=== PATIENT | male | born 1970 | race Caucasian/White ===

== ENCOUNTER 2021-05-03 11:03 | Emergency (ER) | payer MEDICAID ==
[~2021-05-03] VITALS: Ht 182.9 cm; Wt 84.0 kg
[2021-05-03] MEDS ORDERED: LORAZEPAM 2MG/ML CPJ IM STA (14:26)
[2021-05-03] MEDS ORDERED: HALOPERIDOL LACTATE 5MG/ML VIAL IM STA (14:26)
[2021-05-03] MEDS ORDERED: DIPHENHYDRAMINE 50MG/ML VIAL IM STA (14:26)
[2021-05-03 15:58] LABS: BASOPHILS % 0.6 % (0.0-2.0); EOSINOPHILS % 0.2 % (0.0-5.0); HEMATOCRIT. 42.6 % (42.0-52.0); HEMOGLOBIN. 14.6 g/dL (14.0-18.0); LYMPHOCYTES % 24.2 % (20.0-50.0); MEAN CORPUSCULAR HEMOGLOBIN 31.3 pg (28.0-32.0); MEAN CORPUSCULAR VOLUME 91.2 fL (80.0-94.0); MEAN PLATELET VOLUME 7.7 fl (7.4-10.4); MONOCYTES % 12.9 % (2.0-8.0); NEUTROPHILS % 62.1 % (40.0-76.0); PLATELET 234 x1000/uL (130-400); RED BLOOD CELL COUNT 4.67 mill/uL (4.7-6.1); RED CELL DISTRIBUTION WIDTH 13.5 % (11.6-14.6)
[2021-05-03 16:02] LABS: CHLORIDE 104 mEq/L (98-107)
[2021-05-03 16:10] LABS: ETHANOL BLOOD < 10 mg/dL
[2021-05-03 20:10] VITALS: BP 123/89
== END 2021-05-03 20:12 | disposition home or self-care (01) ==
LOC: ER 11:51
DX: F23 Brief psychotic disorder (principal); F15.10 Other stimulant abuse, uncomplicated
CPT/HCPCS: 36415; 80053; 80320; 85025; 96372; 99284; J1200; J1630; J2060; G0480

== ENCOUNTER 2023-04-18 01:29 | Emergency (ER) | payer MEDICAID, OTHER ==
[~2023-04-18] VITALS: Ht 190.5 cm; Wt 105.0 kg
[2023-04-18 01:42] VITALS: O2SAT 100
[2023-04-18] MEDS ORDERED: IBUP-2029 MT (03:06)
[2023-04-18] MEDS ORDERED: BENZ1LOZ73 MT (03:06)
[2023-04-18 03:31] VITALS: BP 120/80; PULSE 92; RESP 18; TEMP 97.9
== END 2023-04-18 03:36 | disposition home or self-care (01) ==
LOC: ER 01:29
DX: J02.9 Acute pharyngitis, unspecified (principal); Z00.00 Encounter for general adult medical examination without abnormal findings; F32.9 Major depressive disorder, single episode, unspecified; F15.10 Other stimulant abuse, uncomplicated
CPT/HCPCS: 99283

== ENCOUNTER 2023-04-20 09:52 | Emergency (ER) | payer MEDICAID ==
[~2023-04-20] VITALS: Ht 182.9 cm; Wt 98.0 kg
[~2023-04-20 09:52] MED LIST: BENZ1LOZ73 MT; IBUP-2029 MT
[2023-04-20 10:16] VITALS: BP 119/78; RESP 18; O2SAT 98
[2023-04-20 10:17] VITALS: PULSE 89
[2023-04-20] MEDS ORDERED: MAG355OR21 PO (11:12)
== END 2023-04-20 11:35 | disposition home or self-care (01) ==
LOC: ER 10:18
DX: K12.1 Other forms of stomatitis (principal)
CPT/HCPCS: 99282

== ENCOUNTER 2023-06-10 16:22 | Emergency (ER) | payer MEDICAID, OTHER ==
[~2023-06-10] VITALS: Ht 182.9 cm; Wt 93.0 kg
[~2023-06-10 16:22] MED LIST changes: +MAG355OR21 PO
[2023-06-10 16:29] VITALS: O2SAT 98
[2023-06-10 17:06] LABS: CLARITY URINE CLEAR (CLEAR); COLOR URINE DARK YELLOW (YELLOW); GLUCOSE URINE NEGATIVE (NEGATIVE); KETONES URINE 1+ (NEGATIVE); LEUKOCYTE ESTERASE URINE TRACE (NEGATIVE); NITRITE URINE NEGATIVE (NEGATIVE); OCCULT BLOOD URINE NEGATIVE (NEGATIVE); PH URINE 5.5 (4.5-8.0); PROTEIN URINE 1+ (NEGATIVE); SPECIFIC GRAVITY URINE 1.027 (1.005-1.030)
[2023-06-10 17:06] LABS: BASOPHILS % 0.7 % (0.0-2.0); EOSINOPHILS % 1.5 % (0.0-5.0); HEMATOCRIT. 37.3 % (42.0-52.0); HEMOGLOBIN. 12.8 g/dL (14.0-18.0); LYMPHOCYTES % 23.3 % (20.0-50.0); MEAN CORPUSCULAR HEMOGLOBIN 31.8 pg (28.0-32.0); MEAN CORPUSCULAR HGB CONC 34.2 g/dL (31.0-37.0); MEAN CORPUSCULAR VOLUME 93.1 fL (80.0-94.0); MONOCYTES % 11.5 % (2.0-8.0); PLATELET 211 x1000/uL (130-400); RED BLOOD CELL COUNT 4.01 mill/uL (4.7-6.1); RED CELL DISTRIBUTION WIDTH 13.8 % (11.6-14.6)
[2023-06-10 17:09] LABS: RBC URINE 0-2 /hpf (0-2); WBC URINE 0-2 /hpf (0-2); YEAST URINE NONE SEEN
[2023-06-10 17:18] LABS: CHLORIDE 105 mEq/L (98-107); INDEX HEMOLYSI 1 (1-3); INDEX ICTERIC 1 (1-4); INDEX LIPEMIC 1 (1-3); POTASSIUM 3.5 mEq/L (3.5-5.1); SODIUM 136 mEq/L (136-145)
[2023-06-10 17:19] LABS: BACTERIA URINE 1+; MUCUS URINE 1+ /lpf (NONE/TRACE); SQUAMOUS EPITHELIAL CELL URINE FEW /lpf (RARE/1+)
[2023-06-10 17:30] LABS: *AMPHETAMINES SCREEN URINE PRESUMTIVE POSITIVE (NEGATIVE); *BARBITURATES SCREEN URINE NEGATIVE (NEGATIVE); *BENZODIAZEPINES SCREEN URINE NEGATIVE (NEGATIVE); *COCAINE SCREEN URINE NEGATIVE (NEGATIVE); CANNABINOID URINE SCREEN NEGATIVE (NEGATIVE); ECSTASY MDMA SCREEN URINE CONF.TEST INDICATED (NEGATIVE); OPIATES URINE SCREEN NEGATIVE (NEGATIVE); PHENCYCLIDINE URINE SCREEN NEGATIVE (NEGATIVE)
[2023-06-10 17:33] LABS: ACETAMINOPHEN <2 ug/mL ug/mL (10-30); ALANINE AMINOTRANSFERASE 22 IU/L (13-61); ALBUMIN 4.3 g/dL (3.4-5.0); ASPARTATE AMINOTRANSFERASE 20 IU/L (15-37); BILIRUBIN TOTAL 1.5 mg/dL (0.1-1.0); CARBON DIOXIDE 27 mEq/L (21-32); CREATININE 0.9 mg/dL (0.6-1.3); ETHANOL BLOOD < 10 mg/dL (<10); GLUCOSE 85 mg/dL (70-105); PROTEIN TOTAL 7.5 g/dL (6.0-8.3); UREA NITROGEN BLOOD 14 mg/dL (7-21)
[2023-06-10 19:47] LABS: CHLORIDE 106 mEq/L (98-107); INDEX HEMOLYSI 1 (1-3); INDEX ICTERIC 1 (1-4); INDEX LIPEMIC 1 (1-3); POTASSIUM 3.4 mEq/L (3.5-5.1); SODIUM 137 mEq/L (136-145)
[2023-06-10 19:59] LABS: ALANINE AMINOTRANSFERASE 23 IU/L (13-61); ASPARTATE AMINOTRANSFERASE 17 IU/L (15-37); BILIRUBIN TOTAL 1.4 mg/dL (0.1-1.0); CALCIUM 8.7 mg/dL (8.5-10.1); CARBON DIOXIDE 26 mEq/L (21-32); CREATININE 0.8 mg/dL (0.6-1.3); GLUCOSE 81 mg/dL (70-105); PROTEIN TOTAL 6.9 g/dL (6.0-8.3); UREA NITROGEN BLOOD 12 mg/dL (7-21)
[2023-06-10 20:00] LABS: AMMONIA 31 uMol/L (<32)
[2023-06-10] MEDS ORDERED: ACETAMINOPHEN 500MG TABLET PO ONE (23:30)
[2023-06-11] MEDS ORDERED: LORAZEPAM 0.5MG TABLET PO ONE ×2 (00:15→00:30)
[2023-06-11 06:05] VITALS: BP 121/71; PULSE 73; RESP 16; TEMP 98
== END 2023-06-11 10:51 | disposition home or self-care (01) ==
LOC: ER 16:22
DX: F22 Delusional disorders (principal); F32.9 Major depressive disorder, single episode, unspecified; F15.10 Other stimulant abuse, uncomplicated
CPT/HCPCS: 36415; 71045; 80053; 80305; 80307; 80320; 80329; 81003; 82140; 84443; 85025; 99285; G0480

== ENCOUNTER 2023-07-20 15:26 | Emergency (ER) | payer MEDICAID ==
[~2023-07-20] VITALS: Ht 175.3 cm; Wt 90.0 kg
[2023-07-20 15:30] VITALS: O2SAT 98
[2023-07-20 16:29] LABS: BASOPHILS % 0.4 % (0.0-2.0); EOSINOPHILS % 1.4 % (0.0-5.0); HEMATOCRIT. 37.6 % (42.0-52.0); HEMOGLOBIN. 12.9 g/dL (14.0-18.0); LYMPHOCYTES % 18.2 % (20.0-50.0); MEAN CORPUSCULAR HEMOGLOBIN 31.9 pg (28.0-32.0); MEAN CORPUSCULAR HGB CONC 34.2 g/dL (31.0-37.0); MEAN CORPUSCULAR VOLUME 93.3 fL (80.0-94.0); MEAN PLATELET VOLUME 7.9 fl (7.4-10.4); MONOCYTES % 9.6 % (2.0-8.0); NEUTROPHILS % 70.4 % (40.0-76.0); PLATELET 215 x1000/uL (130-400); RED BLOOD CELL COUNT 4.03 mill/uL (4.7-6.1); RED CELL DISTRIBUTION WIDTH 13.5 % (11.6-14.6); WHITE BLOOD COUNT 11.1 x1000/uL (4.5-11.0)
[2023-07-20 16:39] LABS: CHLORIDE 102 mEq/L (98-107); INDEX HEMOLYSI 1 (1-3); INDEX ICTERIC 1 (1-4); INDEX LIPEMIC 1 (1-3); POTASSIUM 3.7 mEq/L (3.5-5.1); SODIUM 138 mEq/L (136-145)
[2023-07-20 16:54] LABS: ACETAMINOPHEN <2 ug/mL ug/mL (10-30); ALANINE AMINOTRANSFERASE 17 IU/L (13-61); ALBUMIN 4.1 g/dL (3.4-5.0); ASPARTATE AMINOTRANSFERASE 10 IU/L (15-37); BILIRUBIN TOTAL 0.7 mg/dL (0.1-1.0); CALCIUM 8.8 mg/dL (8.5-10.1); CARBON DIOXIDE 26 mEq/L (21-32); CREATINE KINASE 185 IU/L (39-308); CREATININE 1.1 mg/dL (0.6-1.3); ETHANOL BLOOD < 10 mg/dL (<10); GLUCOSE 91 mg/dL (70-105); PROTEIN TOTAL 7.1 g/dL (6.0-8.3); UREA NITROGEN BLOOD 12 mg/dL (7-21)
[2023-07-20 16:56] LABS: CLARITY URINE CLEAR (CLEAR); COLOR URINE YELLOW (YELLOW); GLUCOSE URINE NEGATIVE (NEGATIVE); KETONES URINE TRACE (NEGATIVE); LEUKOCYTE ESTERASE URINE 1+ (NEGATIVE); NITRITE URINE NEGATIVE (NEGATIVE); OCCULT BLOOD URINE NEGATIVE (NEGATIVE); PROTEIN URINE NEGATIVE (NEGATIVE)
[2023-07-20 17:09] LABS: BACTERIA URINE NONE SEEN; RBC URINE NONE SEEN /hpf (0-2); SQUAMOUS EPITHELIAL CELL URINE RARE /lpf (RARE/1+)
[2023-07-20 17:27] LABS: *AMPHETAMINES SCREEN URINE PRESUMTIVE POSITIVE (NEGATIVE); *BARBITURATES SCREEN URINE NEGATIVE (NEGATIVE); *BENZODIAZEPINES SCREEN URINE NEGATIVE (NEGATIVE); *COCAINE SCREEN URINE NEGATIVE (NEGATIVE); CANNABINOID URINE SCREEN NEGATIVE (NEGATIVE); ECSTASY MDMA SCREEN URINE NEGATIVE (NEGATIVE); METHADONE URINE SCREEN NEGATIVE (NEGATIVE); OPIATES URINE SCREEN NEGATIVE (NEGATIVE); PHENCYCLIDINE URINE SCREEN NEGATIVE (NEGATIVE)
[2023-07-20 17:56] LABS: TROPONIN I HIGH SENSITIVITY 5 ng/L (<78)
[2023-07-20] MEDS ORDERED: ASPIRIN 325MG TABLET PO ONE (22:30)
[2023-07-21 00:04] LABS: TROPONIN I HIGH SENSITIVITY 5 ng/L (<78)
[2023-07-21] MEDS ORDERED: QUETIAPINE FUMARATE 50MG TABLET PO SCH (12:45)
[2023-07-21 19:00] VITALS: BP 123/68; PULSE 87; RESP 16; TEMP 98.7
[2023-07-22] MEDS ORDERED: HALOPERIDOL LACTATE 5MG/ML VIAL IM ONE (07:45)
[2023-07-22] MEDS ORDERED: LORAZEPAM 2MG/ML CPJ IM ONE (07:45)
== END 2023-07-22 08:27 | disposition home or self-care (01) ==
LOC: ER 15:26
DX: F23 Brief psychotic disorder (principal); R07.89 Other chest pain
CPT/HCPCS: 80053; 80305; 81003; 80307; 80329; 80320; 82550; 84443; 85025; 84484; 36415; 71045; 93005; 99285; Z7610; G0480

== ENCOUNTER 2023-09-04 17:05 | Emergency (ER) | payer MEDICAID, OTHER ==
[~2023-09-04] VITALS: Ht 182.9 cm; Wt 91.1 kg
[2023-09-04 17:14] VITALS: BP 103/82; PULSE 77; RESP 18; TEMP 98.6; O2SAT 98
[2023-09-04] MEDS ORDERED: AMOXICILLIN/POTASSIUM CLAVULANATE 875/125MG TAB PO ONE (18:30)
[2023-09-04] MEDS ORDERED: AMOX1TAB16 MT (20:28)
== END 2023-09-04 20:41 | disposition home or self-care (01) ==
LOC: ER 18:06
DX: S60.221A Contusion of right hand, initial encounter (principal); G89.11 Acute pain due to trauma; Z79.899 Other long term (current) drug therapy; W50.3XXA Accidental bite by another person, initial encounter; Y93.89 Activity, other specified; Y92.89 Other specified places as the place of occurrence of the external cause; Y99.8 Other external cause status
CPT/HCPCS: 73100; 73120; 99284

== ENCOUNTER 2024-02-19 18:47 | Emergency (ER) | payer MEDICAID ==
[~2024-02-19] VITALS: Ht 182.9 cm; Wt 81.8 kg
[~2024-02-19 18:47] MED LIST changes: +AMOX1TAB16 MT
[2024-02-19 18:50] VITALS: BP 116/78; PULSE 90; RESP 17; O2SAT 99
[2024-02-19 19:30] VITALS: TEMP 98.5
[2024-02-19] MEDS: ACETAMINOPHEN 325MG TABLET PO ONE (19:30)
[2024-02-19] MEDS ORDERED: TERB250T88 MT (20:05)
[2024-02-19] MEDS ORDERED: HYDR28CR97 TP (20:05)
[2024-02-19] MEDS ORDERED: NAPR-1176 MT (20:05)
== END 2024-02-19 21:23 | disposition home or self-care (01) ==
LOC: ER 18:47
DX: S90.561A Insect bite (nonvenomous), right ankle, initial encounter (principal); Z79.899 Other long term (current) drug therapy; W57.XXXA Bitten or stung by nonvenomous insect and other nonvenomous arthropods, initial encounter; Y93.89 Activity, other specified; Y92.89 Other specified places as the place of occurrence of the external cause; Y99.8 Other external cause status
CPT/HCPCS: 99283

== ENCOUNTER 2024-11-24 09:54 | Emergency (ER) | payer MEDICAID ==
[~2024-11-24] VITALS: Ht 188 cm; Wt 86.0 kg
[~2024-11-24 09:54] MED LIST changes: +HYDR28CR97 TP; +NAPR-1176 MT; +TERB250T88 MT
[2024-11-24 09:59] VITALS: O2SAT 97
[2024-11-24] MEDS: LORAZEPAM 1MG TABLET PO ONE (10:48)
[2024-11-24] MEDS: OLANZAPINE 10 MG/VIAL IM ONE (10:48)
[2024-11-24 10:50] LABS: BASOPHILS % 0.7 % (0.0-2.0); EOSINOPHILS % 0.4 % (0.0-5.0); HEMATOCRIT. 38.6 % (42.0-52.0); LYMPHOCYTES % 23.2 % (20.0-50.0); MEAN CORPUSCULAR HEMOGLOBIN 31.1 pg (28.0-32.0); MEAN CORPUSCULAR HGB CONC 33.6 g/dL (31.0-37.0); MEAN CORPUSCULAR VOLUME 92.4 fL (80.0-94.0); MEAN PLATELET VOLUME 7.6 fl (7.4-10.4); NEUTROPHILS % 64.7 % (40.0-76.0); PLATELET 278 x1000/uL (130-400); RED BLOOD CELL COUNT 4.18 mill/uL (4.7-6.1); RED CELL DISTRIBUTION WIDTH 13.1 % (11.6-14.6); WHITE BLOOD COUNT 8.3 x1000/uL (4.5-11.0)
[2024-11-24 11:03] LABS: CHLORIDE 103 mEq/L (98-107); POTASSIUM 3.9 mEq/L (3.5-5.1); SODIUM 137 mEq/L (136-145)
[2024-11-24 11:04] LABS: CALCIUM 9.2 mg/dL (8.7-10.4); CARBON DIOXIDE 23 mEq/L (21-32)
[2024-11-24 11:09] LABS: GLUCOSE 107 mg/dL (70-105); UREA NITROGEN BLOOD 9 mg/dL (9-23)
[2024-11-24 11:11] LABS: ETHANOL BLOOD < 10 mg/dL (<10)
[2024-11-24 16:07] LABS: CLARITY URINE CLEAR (CLEAR); COLOR URINE YELLOW (YELLOW); GLUCOSE URINE NEGATIVE (NEGATIVE); KETONES URINE NEGATIVE (NEGATIVE); LEUKOCYTE ESTERASE URINE NEGATIVE (NEGATIVE); NITRITE URINE NEGATIVE (NEGATIVE); OCCULT BLOOD URINE 1+ (NEGATIVE); PH URINE 5.5 (4.5-8.0); PROTEIN URINE NEGATIVE (NEGATIVE); SPECIFIC GRAVITY URINE 1.004 (1.005-1.030); UROBILINOGEN URINE 0.2 E.U./dL (0.2-1.0)
[2024-11-24 16:24] LABS: *AMPHETAMINES SCREEN URINE PRESUMPTIVE POSITIVE (NEGATIVE); *BARBITURATES SCREEN URINE NEGATIVE (NEGATIVE); *BENZODIAZEPINES SCREEN URINE NEGATIVE (NEGATIVE); *COCAINE SCREEN URINE NEGATIVE (NEGATIVE); BACTERIA URINE TRACE; SQUAMOUS EPITHELIAL CELL URINE RARE /lpf (RARE/1+); WBC URINE 0-2 /hpf (0-2)
[2024-11-24 16:25] LABS: CANNABINOID URINE SCREEN NEGATIVE (NEGATIVE); ECSTASY MDMA SCREEN URINE NEGATIVE (NEGATIVE); METHADONE URINE SCREEN NEGATIVE (NEGATIVE); OPIATES URINE SCREEN NEGATIVE (NEGATIVE); PHENCYCLIDINE URINE SCREEN NEGATIVE (NEGATIVE)
[2024-11-25 08:22] VITALS: BP 122/65; PULSE 82; RESP 16; TEMP 36.7; O2SAT 98
== END 2024-11-25 12:06 | disposition home or self-care (01) ==
LOC: ER 10:02
DX: F20.9 Schizophrenia, unspecified (principal); Z59.00 Homelessness unspecified; Z79.899 Other long term (current) drug therapy; Z20.822 Contact with and (suspected) exposure to COVID-19
CPT/HCPCS: 80305; 80048; 81003; 80307; 80329; 80320; 85025; 36415; 96372; 99285; 87426; J3490; Z7610; G0480